=== PATIENT | female | born 1990 | race Caucasian/White ===

== ENCOUNTER 2022-01-10 08:39 | Inpatient (IN) | payer OTHER ==
[~2022-01-10] VITALS: Ht 149.9 cm; Wt 84.4 kg
[2022-01-10] MEDS ORDERED: OXYTOCIN 30 UNITS/500ML NS PMX 500 ML IV SCH ×2 (09:30→14:45)
[2022-01-10] MEDS: LACTATED RINGERS 1,000 ML IV SCH (09:48)
[2022-01-10 09:59] LABS: BASOPHILS % 0.4 % (0.0-2.0); EOSINOPHILS % 1.7 % (0.0-5.0); HEMATOCRIT. 33.3 % (36.0-48.0); HEMOGLOBIN. 11.3 g/dL (12.0-16.0); LYMPHOCYTES % 27.9 % (20.0-50.0); MEAN CORPUSCULAR VOLUME 94.3 fL (81.0-99.0); MEAN PLATELET VOLUME 10.5 fl (7.4-10.4); MONOCYTES % 7.3 % (2.0-8.0); NEUTROPHILS % 62.7 % (40.0-76.0); PLATELET 194 x1000/uL (130-400); RED BLOOD CELL COUNT 3.53 mill/uL (4.2-5.4); RED CELL DISTRIBUTION WIDTH 14.3 % (11.6-14.6)
[2022-01-10 10:03] LABS: CLARITY URINE CLEAR (CLEAR); COLOR URINE YELLOW (YELLOW); KETONES URINE TRACE (NEGATIVE); LEUKOCYTE ESTERASE URINE 2+ (NEGATIVE); NITRITE URINE POSITIVE (NEGATIVE); OCCULT BLOOD URINE 1+ (NEGATIVE); PROTEIN URINE NEGATIVE (NEGATIVE); SPECIFIC GRAVITY URINE 1.015 (1.005-1.030); UROBILINOGEN URINE 0.2 E.U./dL (0.2-1.0)
[2022-01-10 10:10] LABS: INR 0.9; PARTIAL THROMBOPLASTIN TIME 22.4 sec (23.4-31.0); PROTHROMBIN TIME 9.9 sec (9.6-11.0)
[2022-01-10 10:23] LABS: *AMPHETAMINES SCREEN URINE NEGATIVE (NEGATIVE); *BARBITURATES SCREEN URINE NEGATIVE (NEGATIVE); *BENZODIAZEPINES SCREEN URINE NEGATIVE (NEGATIVE); *COCAINE SCREEN URINE NEGATIVE (NEGATIVE); CANNABINOID URINE SCREEN NEGATIVE (NEGATIVE); METHADONE URINE SCREEN NEGATIVE (NEGATIVE); OPIATES URINE SCREEN NEGATIVE (NEGATIVE); PHENCYCLIDINE URINE SCREEN NEGATIVE (NEGATIVE)
[2022-01-10] MEDS ORDERED: FENTANYL CITRATE/PF 50MCG/ML 2ML VIAL ONE (10:49)
[2022-01-10] MEDS ORDERED: MORPHINE SULFATE/PF 1MG/ML 10ML AMP ONE (10:51)
[2022-01-10] MEDS ORDERED: BUTORPHANOL TARTRATE 2 MG/ML VIAL IV PRN (11:45)
[2022-01-10] MEDS ORDERED: ONDANSETRON HCL 4MG/2ML INJ IV PRN ×2 (11:45→14:45)
[2022-01-10] MEDS ORDERED: DIPHENHYDRAMINE 50MG/ML VIAL IV PRN (11:45)
[2022-01-10] MEDS ORDERED: HYDROMORPHONE HCL/PF 2MG/ML CPJ IV PRN (11:45)
[2022-01-10] MEDS ORDERED: KETOROLAC 30MG/ML VIAL IV PRN (11:45)
[2022-01-10 13:23] LABS: HEPATITIS B SURFACE ANTIGEN NEGATIVE
[2022-01-10] MEDS ORDERED: LACTATED RINGERS 1,000 ML IV SCH (14:00)
[2022-01-10 14:05] VITALS: BP 96/56
[2022-01-10] MEDS ORDERED: HYDROCODONE/ACETAMINOPHEN 5/325MG TABLET PO PRN ×2 (14:45)
[2022-01-10] MEDS ORDERED: BISACODYL 10MG SUPP PR PRN (14:45)
[2022-01-10] MEDS ORDERED: LANOLIN OINT 7GM TUBE TOP PRN (14:45)
[2022-01-10] MEDS ORDERED: DIPHENHYDRAMINE 25MG CAPSULE PO PRN (14:45)
[2022-01-10] MEDS ORDERED: RHO(D) IMMUNE GLOBULIN 300 MCG/SYR IM PRN (14:45)
[2022-01-10 15:40] VITALS: BP 96/54
[2022-01-10] MEDS ORDERED: NALOXONE HCL 0.4MG/ML VIAL IV PRN (18:00)
[2022-01-10 19:30] VITALS: BP 98/50
[2022-01-10] MEDS: DOCUSATE SODIUM 100MG CAPSULE PO SCH (21:04)
[2022-01-11] VITALS: BP 100/53
[2022-01-11] MEDS: LACTATED RINGERS 1,000 ML IV SCH (02:26)
[2022-01-11 04:00] VITALS: BP 107/60
[2022-01-11 07:35] LABS: BASOPHILS % 0.3 % (0.0-2.0); HEMATOCRIT. 29.1 % (36.0-48.0); LYMPHOCYTES % 19.7 % (20.0-50.0); MEAN CORPUSCULAR HEMOGLOBIN 32.7 pg (28.0-32.0); MEAN CORPUSCULAR VOLUME 95.1 fL (81.0-99.0); MONOCYTES % 6.2 % (2.0-8.0); NEUTROPHILS % 72.8 % (40.0-76.0); PLATELET 172 x1000/uL (130-400); RED BLOOD CELL COUNT 3.06 mill/uL (4.2-5.4)
[2022-01-11 07:38] LABS: CHLORIDE 105 mEq/L (98-107)
[2022-01-11 08:00] VITALS: BP 92/56
[2022-01-11] MEDS: PRENATAL VIT/FE FUMARATE/FA TABLET PO SCH (09:16)
[2022-01-11 16:00] VITALS: BP 109/60
[2022-01-11 19:30] VITALS: BP 115/78
[2022-01-11] MEDS: DOCUSATE SODIUM 100MG CAPSULE PO SCH (21:46)
[2022-01-11] MEDS: IBUPROFEN 400MG TABLET PO PRN (21:47)
[2022-01-12 04:00] VITALS: BP 106/68
[2022-01-12 09:00] VITALS: BP 119/76
[2022-01-12] MEDS: PRENATAL VIT/FE FUMARATE/FA TABLET PO SCH (10:16)
[2022-01-12] MEDS ORDERED: MULT-230 MT (11:40)
[2022-01-12] MEDS ORDERED: FERR325T6 MT (11:40)
[2022-01-12] MEDS ORDERED: IBUP-2028 PO (11:40)
[2022-01-12] MEDS: IBUPROFEN 400MG TABLET PO PRN (13:06)
== END 2022-01-12 13:30 | disposition home or self-care (01) | DRG 798 ==
LOC: 8 EST LDRP 08:39 → OBSVTOIN 08:39 → 8EST 13:58
PROVIDERS: ADMIT Obstetrics & Gynecology; ATTEND Obstetrics & Gynecology
PROC: 0UB70ZZ Excision of Bilateral Fallopian Tubes, Open Approach (ICD-10-PCS; principal; 2022-01-11)
PROC: 10E0XZZ Delivery of Products of Conception, External Approach (ICD-10-PCS; 2022-01-11)
DX: O13.4 Gestational [pregnancy-induced] hypertension without significant proteinuria, complicating childbirth (principal); Z37.0 Single live birth; N80.0 Endometriosis of uterus; O90.81 Anemia of the puerperium; Z20.822 Contact with and (suspected) exposure to COVID-19; D25.9 Leiomyoma of uterus, unspecified; O34.219 Maternal care for unspecified type scar from previous cesarean delivery; Z30.2 Encounter for sterilization; Z3A.38 38 weeks gestation of pregnancy
CPT/HCPCS: 36415; 80048; 80305; 81003; 85025; 86592; 86703; 86762; 86850; 86900; 87340; 87426; 88307; 99281; J1170; J1200; J2274; J3010; J7120

== ENCOUNTER 2023-04-06 16:56 | Emergency (ER) | payer OTHER ==
[~2023-04-06] VITALS: Ht 162.6 cm; Wt 58.0 kg
[~2023-04-06 16:56] MED LIST: FERR325T6 MT; IBUP-2028 PO; MULT-230 MT
[2023-04-06 17:03] VITALS: BP 111/67; PULSE 71; RESP 20; TEMP 98.1; O2SAT 100
[2023-04-06] MEDS ORDERED: IBUPROFEN 600MG TABLET PO ONE (18:00)
[2023-04-06] MEDS ORDERED: IBUP-2029 MT (20:14)
[2023-04-06] MEDS ORDERED: T3 PO (20:14)
== END 2023-04-06 21:03 | disposition home or self-care (01) ==
LOC: ER 16:56
DX: S92.902A Unspecified fracture of left foot, initial encounter for closed fracture (principal); X58.XXXA Exposure to other specified factors, initial encounter; Y93.89 Activity, other specified; Y92.89 Other specified places as the place of occurrence of the external cause; Y99.8 Other external cause status
CPT/HCPCS: 29515; 99283

== ENCOUNTER 2023-10-16 13:37 | Emergency (ER) | payer OTHER ==
[~2023-10-16] VITALS: Ht 152.4 cm; Wt 78.0 kg
[~2023-10-16 13:37] MED LIST changes: +IBUP-2029 MT; +T3 PO
[2023-10-16 13:41] VITALS: O2SAT 99
[2023-10-16 15:15] LABS: BASOPHILS % 0.3 % (0.0-2.0); EOSINOPHILS % 1.9 % (0.0-5.0); HEMATOCRIT. 36.6 % (36.0-48.0); HEMOGLOBIN. 12.6 g/dL (12.0-16.0); LYMPHOCYTES % 34.9 % (20.0-50.0); MEAN CORPUSCULAR HEMOGLOBIN 32.3 pg (28.0-32.0); MEAN CORPUSCULAR HGB CONC 34.4 g/dL (31.0-37.0); MEAN CORPUSCULAR VOLUME 93.8 fL (81.0-99.0); MEAN PLATELET VOLUME 9.6 fl (7.4-10.4); MONOCYTES % 7.2 % (2.0-8.0); NEUTROPHILS % 55.7 % (40.0-76.0); PLATELET 204 x1000/uL (130-400); RED CELL DISTRIBUTION WIDTH 13.6 % (11.6-14.6); WHITE BLOOD COUNT 6.7 x1000/uL (4.5-11.0)
[2023-10-16 15:29] LABS: ALANINE AMINOTRANSFERASE 57 IU/L (10-49); ALBUMIN 4.5 g/dL (3.2-4.8); ASPARTATE AMINOTRANSFERASE 42 IU/L (<34); BILIRUBIN TOTAL 0.5 mg/dL (0.1-1.0); CALCIUM 8.9 mg/dL (8.7-10.4); CARBON DIOXIDE 24 mEq/L (21-32); CHLORIDE 105 mEq/L (98-107); CREATININE 0.5 mg/dL (0.6-1.0); GLUCOSE 96 mg/dL (70-105); POTASSIUM 3.9 mEq/L (3.5-5.1); PROTEIN TOTAL 6.8 g/dL (6.0-8.3); SODIUM 138 mEq/L (136-145); UREA NITROGEN BLOOD 7 mg/dL (9-23)
[2023-10-16 15:44] LABS: HCG SCREEN POSITIVE
[2023-10-16 18:01] LABS: CLARITY URINE CLEAR (CLEAR); COLOR URINE YELLOW (YELLOW); GLUCOSE URINE NEGATIVE (NEGATIVE); KETONES URINE TRACE (NEGATIVE); LEUKOCYTE ESTERASE URINE TRACE (NEGATIVE); NITRITE URINE NEGATIVE (NEGATIVE); OCCULT BLOOD URINE NEGATIVE (NEGATIVE); PROTEIN URINE NEGATIVE (NEGATIVE); SPECIFIC GRAVITY URINE 1.008 (1.005-1.030); UROBILINOGEN URINE 0.2 E.U./dL (0.2-1.0)
[2023-10-16 18:46] LABS: RBC URINE 0-2 /hpf (0-2)
[2023-10-16 18:47] LABS: BACTERIA URINE TRACE; SQUAMOUS EPITHELIAL CELL URINE 2+ /lpf (RARE/1+)
[2023-10-16 19:07] VITALS: BP 124/87; PULSE 81; RESP 20; TEMP 98.9
== END 2023-10-17 00:57 | disposition home or self-care (01) ==
LOC: ER 13:48
DX: O26.891 Other specified pregnancy related conditions, first trimester (principal); Z3A.09 9 weeks gestation of pregnancy; Z98.890 Other specified postprocedural states
CPT/HCPCS: 36415; 76700; 76801; 80053; 81003; 84703; 85025; 99284